=== PATIENT | male | born 1985 | race Caucasian/White ===

== ENCOUNTER 2016-07-18 20:48 | Emergency (ER) | payer OTHER ==
[~2016-07-18] VITALS: Ht 185.4 cm; Wt 124.3 kg
--- NOTE | 2016-07-18 22:21 | ED UPPER/LOWER EXTREMITY COMPL ---
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 NO REDNESS, SWELLING. Triage Nurses Notes Reviewed? yes Onset: Gradual Duration: constant Timing: recent history Severity: moderate Severity Numbers: 5 Method of Injury: unknown HPI: Patient is a 31-year-old male with an unremarkable past medical history of present emergency room saying that he works a significant amount of hours every day in the past 2 days he's noticed a gradual onset of left calf pain and swelling where he denies any mechanism injury however he states that with ambulation and calf raises makes worse. Patient has tried over ibuprofen with minimal relief of symptoms. Patient also presents with a chronic 6 month history of right shoulder pain that is made worse with above the head range of motion activities. Patient denies any mechanism injury. (LILIAN MEREDITH) Past History Travel History Traveled to [place] past 21 day No Medical History Any Pertinent Medical History? none Neurological: NONE EENT: NONE Cardiovascular: NONE Respiratory: NONE Gastrointestinal: NONE Hepatic: NONE Renal: NONE Musculoskeletal: NONE Psychiatric: NONE Endocrine: NONE Blood Disorders: NONE Cancer(s): NONE Surgical History Surgical History: non-contributory Psychosocial History What is your primary language Slovak Tobacco Use: Never used ETOH Use: heavy use Illicit Drug Use: denies illicit drug use Family History Hx Contributory? No (LILIAN MEREDITH) Review of Systems Review of Systems Constitutional: Reports: no symptoms. EENTM: Reports: no symptoms. Respiratory: Reports: no symptoms. Cardiovascular: Reports: no symptoms. Gastrointestinal/Abdominal: Reports: no symptoms. Genitourinary: Reports: no symptoms. Musculoskeletal: Reports: see HPI, muscle pain, muscle stiffness. Skin: Reports: no symptoms. Neurological/Psychological: Reports: no symptoms. Hematologic/Endocrine: Reports: no symptoms. Immunological: Reports: no symptoms. All Other Systems: Reviewed and Negative (LILIAN MEREDITH) Physical Exam Physical Exam General Appearance: no apparent distress Neurologic/Tendon: normal sensation, normal motor functions, normal tendon functions, responds to pain, no evidence tendon injury, no pulse deficit Skin: intact, normal color, warm/dry Comments: Well-developed well-nourished no apparent distress. HEENT: Atraumatic, extraocular motion intact Neck: Supple, no lymphadenopathy Back: Nontender Respiratory: No respiratory distress Extremities: Right shoulder normal inspection nontender full active range of motion Shoulder flexion abduction, external rotation noted 5 out of 5 strength with mild pain empty can test elicit pain Neuro: Alert and oriented x3 Psych: Mood affect normal, normal memory normal judgment. Diagram Legs Front/Back 1) Mild noted swelling with mild tenderness noted upon palpation no warmth no erythema No pedal edema Dermatomes intact 5 out of 5 resisted range of motion noted with dorsiflexion plantar flexion with mild pain Pedal pulse +2 (LILIAN MEREDITH) Progress Differential Diagnosis: arterial insufficiency, compartment syndrome, contusion, dislocation, DVT, fracture, gout, septic arthritis, sprain, tendon injury Plan of Care: Current Medications Sig/Candelario Start time Last Medication Dose Stop Time Status Admin Ketorolac 30 MG ONCE ONE 07/18 2299 UNVr Tromethamine 07/18 2300 (Toradol) Patient shows no concerning physical exam findings of DVT and has reproducible pain upon gastrocnemius muscular actions, no pedal edema Patient was strongly advised to establish a primary care doctor for possible further evaluation of his chronic right shoulder pain. Patient and normal steady gait on discharge no cardiovascular complaints (LILIAN MEREDITH) Departure Departure Disposition: HOME OR SELF CARE Condition: Stable Clinical Impression Primary Impression: Gastrocnemius strain, left Secondary Impressions: Right shoulder pain Referrals: PATIENT HAS NO PRIMARY CARE DR (PCP/Family) Additional Instructions: As discussed begin icing the area directly 20 minutes every 2 hours. Begin the prescription OF ketorolac for pain and inflammation. If symptoms worsen return to emergency room. Please call the list of primary care doctors provided to the emergency room to establish a doctor. prescription is waiting at [facility]. Departure Forms: Customer Survey General Discharge Information Prescriptions: Current Visit Scripts Ketorolac Tromethamine 1 TAB PO TID PRN PAIN #15 TAB RECEIVED IM IN ER (LILIAN MEREDITH) PA/MONITOR CAR OPERATOR Co-Sign Statement Statement: ED Attending supervision documentation- [] I saw and evaluated the patient. I have also reviewed all the pertinent lab results and diagnostic results. I agree with the findings and the plan of care as documented in the PA's/MONITOR CAR OPERATOR's documentation. [x] I have reviewed the ED Record and agree with the PA's/MONITOR CAR OPERATOR's documentation. [] Additions or exceptions (if any) to the PAs/MONITOR CAR OPERATOR's note and plan are summarized below: [] (JONN ANDREWS,LAI Coyle)
[2016-07-18] MEDS ORDERED: KETOROLAC TROME10 M1 PO (22:48)
[2016-07-18 22:52] VITALS: BP 130/76
== END 2016-07-18 22:52 ==
LOC: ERH 20:48
DX: S86.112A Strain of other muscle(s) and tendon(s) of posterior muscle group at lower leg level, left leg, initial encounter (principal); M25.511 Pain in right shoulder; X58.XXXA Exposure to other specified factors, initial encounter; Y93.89 Activity, other specified; Y92.9 Unspecified place or not applicable
CPT/HCPCS: 96372; J1885